=== PATIENT | female | born 1970 | race Caucasian/White ===

== ENCOUNTER 2016-08-15 06:16 | Emergency (ER) | payer OTHER ==
[2016-08-15] MEDS ORDERED: NS 1,000 ML IV ONE (07:22)
[2016-08-15] MEDS ORDERED: KETOROLAC 30 MG/1 ML SDV ONE (07:22)
[2016-08-15] MEDS ORDERED: KETOROLAC 30 MG/1 ML SDV IVP ONE (07:22)
[2016-08-15] MEDS ORDERED: HYDROmorphONE/DILAUDID 1 MG/ML SYR ONE (07:22)
[2016-08-15] MEDS ORDERED: HYDROmorphONE/DILAUDID 1 MG/ML SYR IVP ONE (07:22)
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
[2016-08-15 08:15] VITALS: BP 167/102; PULSE 58; RESP 16; TEMP 98.4; O2SAT 94
== END 2016-08-15 08:14 | disposition home or self-care (01) ==
DX: K13.79 Other lesions of oral mucosa (principal); K12.1 Other forms of stomatitis
CPT/HCPCS: 96374; J1170; J1885

== ENCOUNTER → 2016-08-20 | Outpatient (CLI) | payer OTHER | LOC: BMCIMAGING 14:49 | PROVIDERS: ATTEND Obstetrics & Gynecology | DX: Z12.31 Encounter for screening mammogram for malignant neoplasm of breast (principal) | CPT/HCPCS: G0202 ==

== ENCOUNTER 2017-02-18 17:32 | Emergency (ER) | payer OTHER ==
[2017-02-18 17:38] VITALS: BP 147/124; TEMP 98.6
--- NOTE | 2017-02-18 17:49 | CPEKG ---
Heart Rate: 53 RR Interval: 1132 P-R Interval: 148 QRSD Interval: 90 QT Interval: 480 QTC Interval: 451 P Keller: 33 QRS Keller: 57 T Wave Keller: 43 EKG Severity - BORDERLINE ECG - EKG Impression: SINUS RHYTHM EKG Impression: BORDERLINE R WAVE PROGRESSION, ANTERIOR LEADS Electronically Signed By: Janki Villa 18-Feb-2017 20:53:21
--- NOTE | 2017-02-18 18:01 | EDPHY ---
H & P Time Seen by Provider: 02/18/17 17:46 HPI/ROS: CHIEF COMPLAINT: Vomiting, chest pain HISTORY OF PRESENT ILLNESS: The patient is a 46 y/o female with a history of hypercholesterolemia, complaining of intermittent vomiting and chest pain. She vomited several times 3 to 4 days ago, but then this completely resolved. For the past two days she has been eating, drinking, and feeling normal. Today while cooking dinner she felt a sudden urge to vomit, barely making it to the sink. Shortly after vomiting, she began feeling a soreness and pressure (ranked 3/10) in the left side of her upper chest. The pain extends into her neck. She is mainly concerned about a heart attack, as her grandfather had a heart attack at an early age. No other family history of early heart disease. She denies abdominal pain, nausea, fever, or other associated symptoms. She has a history of panic attacks associated with vomiting, accompanied by feeling closed in and shakiness. She has three to four alcoholic drinks a day to cope with anxiety. She has had diarrhea for the past 6 months. REVIEW OF SYSTEMS: Constitutional: No fever, no chills Eyes: No visual changes ENT: No sore throat Respiratory: No cough, no shortness of breath Cardiac: Chest pain Gastrointestinal: no abdominal pain Genitourinary: no dysuria Musculoskeletal: No leg pain or swelling Skin: No rash Neurological: No headache, no numbness, no weakness Psychiatric: Depression and anxiety Past Medical/Surgical History: Anxiety, panic attacks, chronic diarrhea Social History: at bedside, four children, lives in [place] Smoking Status: Never smoked Physical Exam: General Appearance: Alert, appears anxious Eyes: Pupils equal and round, no conjunctival pallor ENT, Mouth: Mucous membranes moist Neck: Normal inspection Respiratory: Left upper chest wall tenderness, Lungs are clear to auscultation Cardiovascular: Regular rate and rhythm Gastrointestinal: Abdomen is soft and non-tender Neurological: A&O, nonfocal, normal gait Skin: Warm and dry, no rash Extremities: Nontender, no pedal edema Psychiatric: Anxious Constitutional: Initial Vital Signs Temperature (C) 37 C 02/18/17 17:37 Heart Rate 74 02/18/17 17:37 Respiratory Rate 20 02/18/17 17:37 Blood Pressure 147/124 H 02/18/17 17:37 O2 Sat (%) 99 02/18/17 17:37 O2 Delivery Mode Room Air Allergies/Adverse Reactions: No Known Allergies Allergy (Verified 02/18/17 17:36) Home Medications: Medication Instructions Recorded Crestor 09/30/14 Omeprazole 09/30/14 Sertraline HCl 09/30/14 Medical Decision Making - Diagnostics EKG Interpretation: EKG interpreted by me reveals borderline R wave progression anteriorly, rate 53 , no ST/T changes. Interpretation: border line R wave progression Imaging Results: Chest x-ray: NAD Imaging: I viewed and interpreted images myself ED Course/Re-evaluation: The patient is a 46 y/o female complaining of sudden onset vomiting over the past 3 to 4 days. She has associated soreness in her left upper chest. Her EKG shows borderline R wave progression anteriorly, similar to prior EKG. Plan for labs and chest X-ray. Given this presentation, I do not suspect acute coronary syndrome. She has no risk factors for pulmonary embolism and I do not suspect PE. The patient has a negative troponin and normal chest X-ray. I feel she is safe to return home. She is asymptomatic. She will restart Prilosec. She agrees to this course of action. Return precautions given. Differential Diagnosis: Differential diagnosis includes though not limited to acute coronary syndrome, pulmonary embolism, acute gastritis, anxiety, pneumomediastinum - Data Points Laboratory Results: Laboratory Results 02/18/17 18:40 02/18/17 18:40 Departure - Departure Disposition: Home, Routine, Self-Care Clinical Impression: Vomiting Qualifiers: Vomiting type: unspecified Vomiting Intractability: non-intractable Nausea presence: without nausea Qualified Code(s): R11.11 - Vomiting without nausea Chest pain Qualifiers: Chest pain type: intercostal pain Qualified Code(s): R07.82 - Intercostal pain Condition: Good Instructions: Chest Pain (ED), Acute Nausea and Vomiting (ED) Additional Instructions: 1. Resume taking your omeprazole daily. Take Zofran as directed as needed for nausea and vomiting for 2-3 days. 2. Follow-up with your primary care provider for unimproved symptoms in 2-3 days. 3. Return to the ED for uncontrollable vomiting, fever, weakness or numbness on one side of your body, or other worsening of condition. Referrals: Nancie Jorge MD [Medical Doctor] - As per Instructions Report Scribed for: Janki Villa Report Scribed by: Mitali Flores Date of Report: 02/18/17 Time of Report: 17:49 Physician Review and Approval Statement: 02/18/17 17:49 Portions of this note were transcribed by a medical review specialist. I personally performed a history, physical exam, medical decision making, and confirmed accuracy of information the transcribed note.
[2017-02-18 18:47] LABS: % IMMATURE GRANULYOCYTES 0.3 % (0.0-1.1); ABSOLUTE IMMATURE GRANULOCYTES 0.01 10^3/uL (0.00-0.10); ADD DIFF? NO; ADD MORPH? NO; ADD SCAN? NO; ATYPICAL LYMPHOCYTE FLAG 0 (0-99); FRAGMENT RBC FLAG 0 (0-99); HEMATOCRIT 36.6 % (38.0-47.0); HEMOGLOBIN 13.3 g/dL (12.6-16.3); LEFT SHIFT FLG 0 (0-99); LIPEMIA HEMOLYSIS FLAG 90 (0-99); MEAN CELL HEMOGLOBIN 34.5 pg (27.9-34.1); MEAN CELL HEMOGLOBIN CONCENTR. 36.3 g/dL (32.4-36.7); MEAN CELL VOLUME 95.1 fL (81.5-99.8); MEAN PLATELET VOLUME 10.1 fL (8.7-11.7); PLATELET CLUMPS FLAG 0 (0-99); PLATELET COUNT 123 10^3/uL (150-400); RED BLOOD CELL COUNT 3.85 10^6/uL (4.18-5.33); RED CELL DISTRIBUTION WIDTH 11.5 % (11.5-15.2)
[2017-02-18 18:56] LABS: ANION GAP 15 mEq/L (8-16); CALCIUM 9.4 mg/dL (8.5-10.4); CARBON DIOXIDE 20 mEq/l (22-31); CHLORIDE 98 mEq/L (97-110); CREATININE 0.7 mg/dL (0.6-1.0); GLOMERULAR FILTRATION RATE > 60; GLUCOSE 88 mg/dL (70-100); POTASSIUM 3.7 mEq/L (3.5-5.2); SODIUM 133 mEq/L (134-144)
[2017-02-18 19:08] LABS: TROPONIN I < 0.012 ng/mL (0.000-0.034)
[2017-02-18 20:18] VITALS: PULSE 60; RESP 18; O2SAT 96
== END 2017-02-18 20:10 | disposition home or self-care (01) ==
DX: R07.82 Intercostal pain (principal); R11.11 Vomiting without nausea

== ENCOUNTER 2017-08-13 19:08 | Emergency (ER) | payer OTHER ==
--- NOTE | 2017-08-13 19:38 | EDPHY ---
H & P Stated Complaint: some SI/depression, recent inj to coccyx 2 wks ago - pain not improving Source: Patient, Family () Exam Limitations: Clinical condition - Medical/Surgical History Hx Asthma: No Hx Chronic Respiratory Disease: No Hx Diabetes: No Hx Cardiac Disease: Yes Hx Renal Disease: No Hx Cirrhosis: No Hx Alcoholism: Yes Hx HIV/AIDS: No Hx Splenectomy or Spleen Trauma: No Other PMH: tubal ligation; ; hyperlipidemia, depression, etoh abuse, tonsillectomy - Social History Smoking Status: Never smoked Time Seen by Provider: 08/13/17 19:37 HPI/ROS: HPI: This is a 47-year-old female who presents with Chief Complaint: some SI/depression, recent injury to coccyx 2 wks ago - pain not improving Location:psych Quality: Major depression and suicidal thoughts Duration: Several weeks Signs and Symptoms: + insomnia, + excessive crying, + disorientation, + inability to function with daily activities, + suicidal thoughts, no homicidal ideation, no hallucinations Timing: Acute on chronic Severity: Moderate Context: Patient presents accompanied by her with a history of alcoholism, major depression with worsening depression over the last several weeks accompanied by suicidal thoughts, excessive crying, insomnia, disorientation, inability to function with daily activities. Patient reports that she wants to end her life. Her father has been sick with several surgeries and this has been a trigger to worsen her depression. Patient also fell approximately 2 weeks while she was in her home wearing socks on the hardwood floors. She reports that she had coccyx pain and associated bruising. She reports that the pain persists over the last 2 weeks. Denies any change in bowel or bladder problems. + bruising. Denies LOC/head injury/neck pain/ dizziness/nausea/vomiting/amnesia. Denies any recreational drug use. Patient denies drinking alcohol today. does not feel safe taking patient home as she is a danger to herself and is gravely disabled. Modifying Factors: None Comment: ROS: see HPI Constitutional: No fever, no chills, no weight loss Eyes: No blurred vision Respiratory: No shortness of breath, no cough Cardiovascular: No chest pain Gastrointestinal: No nausea, no vomiting no diarrhea Genitourinary: No dysuria Extremities: No myalgias Neurologic: No weakness, no numbness Skin: No rashes Hematologic: No bruising, no bleeding MEDICAL/SURGICAL/SOCIAL HISTORY: Medical/Surgical history: tubal ligation; ; hyperlipidemia, depression , etoh abuse, tonsillectomy Social history: . CONSTITUTIONAL: Tearful, flat affect middle-aged white female, at bedside, awake and alert, no obvious distress HEENT: Atraumatic and normocephalic, PERRL, EOMI. Nares patent; no rhinorrhea; no nasal mucosal edema. Tympanic membranes clear. Oropharynx clear, no exudate and moist pink mucosa. Airway patent. No lymphadenopathy. No meningismus. Cardiovascular: Normal S1/S2, regular rate, regular rhythm, without murmur rub or gallop. PULMONARY/CHEST: Symmetrical and nontender. Clear to auscultation bilaterally. Good air movement. No accessory muscle usage. ABDOMEN: Soft, nondistended, nontender, no rebound, no guarding, no peritoneal signs, no masses or organomegaly. No CVAT. PELVIC: no pain with rocking; bilateral hips flexion 125 degrees, extension 30 degrees, with no pain internal rotation and no pain external rotation. Patient has reproducible tenderness to palpation coccyx with associated ecchymosis, BACK: No midline tenderness, no paraspinous spasm, deep tendon reflexes 2/2, no pain with straight leg raise, No foot drop. Achilles reflexes are equal bilaterally. Able to walk on heels and toes without difficulty. EXTREMITIES: 2/2 pulses, strength 5/5, no deformities, no clubbing, no cyanosis or edema. NEUROLOGICAL: no focal neuro deficits. GCS 15. SKIN: Warm and dry, no erythema. no rash. Good capillary refill. PSYCH: Fair eye contact, no flight of ideas, disorganized thought process, poor insight and judgment, no auditory and visual command hallucinations, + suicidal ideation, no homicidal ideation, no paranoia (Shonda,Terra) Constitutional: Initial Vital Signs Temperature (C) 36.7 C 08/13/17 19:23 Heart Rate 77 08/13/17 19:23 Respiratory Rate 16 08/13/17 19:23 Blood Pressure 101/78 08/13/17 19:23 O2 Sat (%) 88 L 08/13/17 19:23 O2 Delivery Mode Room Air Allergies/Adverse Reactions: No Known Allergies Allergy (Verified 08/13/17 19:29) Home Medications: Medication Instructions Recorded Ranitidine HCl [Zantac] 150 mg PO DAILY 09/30/14 Rosuvastatin Calcium [Crestor 20mg 20 mg PO DAILY 09/30/14 (*)] Sertraline HCl [Zoloft 100mg (*)] 150 mg PO DAILY 09/30/14 Diazepam [Valium 5 MG (*)] 2.5 - 5 mg PO DAILY PRN 08/13/17 Acetaminophen [Tylenol 325mg (*)] 325 mg PO DAILY PRN 08/14/17 Hydroxyzine Pamoate 25 mg PO DAILY PRN 08/14/17 Ondansetron Odt [Zofran Odt 4 mg 4 mg PO Q4 PRN 08/14/17 (*)] traZODone [traZODONE 100MG (*)] 100 mg PO HS PRN 08/14/17 Medical Decision Making ED Course/Re-evaluation: 2000: Placed on M1 hold upon arrival. Patient is severely depressed with active suicidal thoughts. Labs and UDS ordered. Currently calm and cooperative. Coccyx x-ray ordered and shows no signs of fracture. No signs of neurovascular compromise/tenting of skin/compartment syndrome/extremities and joints examined above and below area of concern and are neurovascularly intact. Patient has no signs of alcohol withdrawal seizures/delirium. 2037: Urine drug screen is positive for marijuana and benzodiazepines. 2100: ETOH 382 0100: End of shift. Signed over to Dr. Killian pending patient becoming more sober and alcohol level is decreased. At which time, mental health will evaluate patient further and make recommendations. This patient was seen under the supervision of my secondary supervising physician. I evaluated care for this patient independently. Discussed this patient with Dr. Hernandez who did not see the patient. (Darby Merchant) 0643: Patient appears to be going through alcohol draw. She is getting p.o. Ativan. She is on see wall. She is drinking and tolerating fluids well. She did have a mental health evaluation and plan is for inpatient psychiatric hospitalization. She remains on M1 hold. (Fran Killian) Differential Diagnosis: Differential diagnosis includes but is not limited to functional depression, situational depression, schizoaffective disorder, bipolar disorder. (Darby Merchant) Other Provider: 10:20: Patient has been accepted to [facility]. I filled out EMTALA form. Stable over course of my shift. (Ye Vega) - Data Points Laboratory Results: Laboratory Results 08/13/17 20:05 08/13/17 20:05 Medications Given: Discontinued Medications Acetaminophen (Tylenol) 650 mg PO EDNOW ONE Stop: 08/13/17 21:37 Last Admin: 08/13/17 21:40 Dose: 650 mg Chlordiazepoxide HCl (Librium) 50 mg PO EDNOW ONE Stop: 08/14/17 09:36 Last Admin: 08/14/17 09:41 Dose: 50 mg Lorazepam (Ativan) 1 mg PO EDNOW ONE Stop: 08/13/17 23:54 Last Admin: 08/13/17 23:56 Dose: 1 mg Lorazepam (Ativan) 1 mg PO ONCE ONE Stop: 08/14/17 05:23 Last Admin: 08/14/17 05:24 Dose: 1 mg Ondansetron HCl (Zofran Odt) 4 mg PO EDNOW ONE Stop: 08/13/17 21:38 Last Admin: 08/13/17 21:40 Dose: 4 mg Departure - Departure Disposition: Other Psych, Not [facility] Clinical Impression: Severe major depression, Verbalizes suicidal thoughts Alcohol intoxication Qualifiers: Complication of substance-induced condition: uncomplicated Qualified Code(s): F10.920 - Alcohol use, unspecified with intoxication, uncomplicated Referrals: Rambo Arcos MD [Primary Care Provider] - As per Instructions
[2017-08-13 20:30] LABS: PLATELET COUNT 95 10^3/uL (150-400)
[2017-08-13] MEDS ORDERED: ACETAMINOPHEN 325 MG TAB PO ONE (21:36)
[2017-08-13] MEDS ORDERED: ONDANSETRON DISINTEGRATING 4 MG TAB PO ONE (21:37)
[2017-08-13] MEDS ORDERED: LORazepam 1 MG TAB PO ONE (23:53)
[2017-08-14] MEDS ORDERED: LORazepam 1 MG TAB PO ONE (05:22)
[2017-08-14] MEDS ORDERED: chlordiazePOXIDE 25 MG CAP PO ONE (09:35)
[2017-08-14] MEDS ORDERED: ONDANSETRON DISINTEGRATING 4 MG TAB ONE (10:30)
[2017-08-14] MEDS ORDERED: DIAZEPAM 5 MG TAB ONE (10:30)
[2017-08-14] MEDS ORDERED: DIAZEPAM 5 MG TAB PO ONE (11:04)
[2017-08-14 12:30] VITALS: BP 138/91
== END 2017-08-14 12:28 ==
PROC: GZ11ZZZ Psychological Tests, Personality and Behavioral (ICD-10-PCS; principal; 2017-08-13)
DX: R45.851 Suicidal ideations (principal); F32.2 Major depressive disorder, single episode, severe without psychotic features; F10.920 Alcohol use, unspecified with intoxication, uncomplicated
CPT/HCPCS: 80305; G0480

== ENCOUNTER → 2017-09-07 | Outpatient (CLI) | payer OTHER | LOC: BMCIMAGING 12:49 | PROVIDERS: ATTEND Obstetrics & Gynecology | DX: Z12.31 Encounter for screening mammogram for malignant neoplasm of breast (principal) ==

== ENCOUNTER 2018-04-01 12:57 | Emergency (ER) | payer MEDICAID, OTHER ==
--- NOTE | 2018-04-01 13:20 | EDPHY ---
HPI/HX/ROS/PE/MDM Narrative: CHIEF COMPLAINT: "I have a headache" HPI: This patient is a 47 year old female with history of hyperlipidemia, alcohol abuse, and depression. She presents complaining of headache ongoing for six days. She has tried ibuprofen without relief. She additionally notes she fell 2- 3 days ago, slipping on hardwood floors and striking the back of her head. She endorses possible loss of consciousness. She is unsure if her persistent headache is related to this. The pain is primarily frontal and occipital, bilaterally. She denies fever, nausea, or vomiting. No weakness in her extremities. She denies any other recent trauma. No recent cough, cold symptoms , GI illness, or other complaints. REVIEW OF SYSTEMS: A comprehensive 10 system review of systems is otherwise negative aside from elements mentioned in the history of present illness and medical decision making. PMH: Tubal ligation; ; hyperlipidemia, depression, EtOH abuse, tonsillectomy SOCIAL HISTORY: . Lives in [place]. History of alcohol abuse. PHYSICAL EXAM: General:Patient is alert, in no acute distress. She did have a blanket over her face when I entered the room. ENT:Eyes are normal to inspection. ENT inspection normal. Neck: Normal inspection. Full range of motion. Respiratory:No respiratory distress. Breath sounds normal bilaterally. Cardiovascular: Regular rate and rhythm. Strong peripheral pulses. Normal cap refill. Abdomen:The abdomen is nontender to palpation. There are no peritoneal signs. There are normal bowel sounds. Back: Normal to inspection. No tenderness to palpation. Skin: Normal color. No rash. Warm and dry. Extremities: Normal appearance. Full range of motion. Neuro: Oriented x3. Normal motor function. Normal sensory function. ED Course: 47 y/o female presents with six day history of headache, with a fall about three days ago. Exam is largely unremarkable. She is neurologically intact. Due to persistent symptoms and reported loss of consciousness, plan for CT head to rule out acute traumatic processes or other acute intracranial abnormalities. Plan to administer 12.5mg IV Reglan, 25mg IV Benadryl, 30mg IV Toradol, and 1L IV NS for symptom relief. 15:00 Patient is feeling "40%" better following medication administration, and requests some juice or water. We will provide this. CT results pending. 15:[address] Rajput, radiologist. CT head is negative for acute processes. 15:35 Reassessed patient. Discussed imaging results. She is states she is now feeling worse again. Plan to administer 1mg IV Dilaudid for symptom relief. 16:00 Alerted by tech that this patient would like to leave immediately without further workup or treatment and is about to leave the department. Appropriate paperwork and return precautions provided. 16:10 Patient had apparently not yet received her Dilaudid. She has now received this medication and is content to stay in the department. 16:54 Notified by nurse that patient is now leaving the department. 17:24 I had a lengthy discussion with the patient regarding followup and further evaluation. She states she is completely 100% headache free at this point. We discussed further testing including MRI or lumbar puncture. She declines both of these at this time and prefers to follow up in the outpatient setting. Referral to neurology provided for further evaluation. Plan to discharge home in good condition. Follow up and strict return precautions discussed. The patient understands to return for any recurrence of headache. She is comfortable with this plan. MDM: This patient presents with approximately one week of headache that was gradual in onset, and possibly related to fall which occurred several days ago. Given report of fall, headache and history of alcohol abuse, I ordered a CTH which was thankfully negative. The patient tells me that she gets headaches like this several times each year, which points away from SAH and seems consistent with migraine. The patient's behavior was somewhat odd during her stay - she repeatedly voiced that she was upset because she had never seen a doctor, never had her vitals taken, and never received any medications, despite the fact that all of these statements are untrue. The patient's is now at bedside. I explained to them both that I have evaluated her numerous times and listed the medications she had received. I offered them further testing, to possibly include LP, CTA, MRI, but stated that given her presentation, lack of neurologic findings, lack of laterality, and negative CTH that I felt the risk of SAH or vessel dissection to be quite low, and that I didn't think these tests were definitively indicated. They declined further testing in favor of discharge home and immediate return to the ED should headache recur. At this time, the patient states she is 100% headache free. - Data Points Imaging Results: Imaging Impressions Head CT 04/01/18 13:43 Impression: Negative noncontrast CT of the brain. Results called to Dr. Ye Vega at 3:10 PM at the time of the interpretation. Imaging: Discussed imaging studies w/ scalloper Radiologist Medications Given: Discontinued Medications Diphenhydramine HCl (Benadryl Injection) 25 mg IVP EDNOW ONE Stop: 04/01/18 13:44 Last Admin: 04/01/18 14:13 Dose: 25 mg Hydromorphone HCl (Dilaudid) 1 mg IVP EDNOW ONE Stop: 04/01/18 15:40 Last Admin: 04/01/18 16:08 Dose: 1 mg Sodium Chloride (Ns) 1,000 mls @ 0 mls/hr IV ONCE ONE; Wide Open PRN Reason: Protocol Stop: 04/01/18 13:44 Last Admin: 04/01/18 14:13 Dose: 1,000 mls Ketorolac Tromethamine (Toradol) 30 mg IVP EDNOW ONE Stop: 04/01/18 13:44 Last Admin: 04/01/18 14:14 Dose: 30 mg Promethazine HCl (Phenergan) 12.5 mg IVP ONCE ONE Stop: 04/01/18 13:45 Last Admin: 04/01/18 14:13 Dose: 12.5 mg General Time Seen by Provider: 04/01/18 13:08 Initial Vital Signs: Initial Vital Signs Temperature (C) 36.4 C 04/01/18 13:01 Heart Rate 70 04/01/18 13:01 Respiratory Rate 18 04/01/18 13:01 Blood Pressure 138/82 H 04/01/18 13:01 O2 Sat (%) 91 L 04/01/18 13:01 O2 Delivery Mode Room Air Allergies/Adverse Reactions: No Known Allergies Allergy (Verified 04/01/18 13:00) Home Medications: Medication Instructions Recorded Ranitidine HCl [Zantac] 150 mg PO DAILY 09/30/14 Rosuvastatin Calcium [Crestor 20mg 20 mg PO DAILY 09/30/14 (*)] Sertraline HCl [Zoloft 100mg (*)] 150 mg PO DAILY 09/30/14 Diazepam [Valium 5 MG (*)] 2.5 - 5 mg PO DAILY PRN 08/13/17 Acetaminophen [Tylenol 325mg (*)] 325 mg PO DAILY PRN 08/14/17 Hydroxyzine Pamoate 25 mg PO DAILY PRN 08/14/17 Ondansetron Odt [Zofran Odt 4 mg 4 mg PO Q4 PRN 08/14/17 (*)] traZODone [traZODONE 100MG (*)] 100 mg PO HS PRN 08/14/17 Departure - Departure Disposition: Home, Routine, Self-Care Clinical Impression: Headache Qualifiers: Headache type: unspecified Headache chronicity pattern: acute headache Intractability: not intractable Qualified Code(s): R51 - Headache Condition: Good Instructions: Acute Headache (ED) Additional Instructions: Follow-up with your primary care physician within 2-3 days. Follow up with neurology for further evaluation as we discussed. A referral to neurology has been provided. Return to the emergency department immediately for recurrence of headache, nausea, vomiting, numbness, weakness, neck pain, fever or other concerns. Use Tylenol and/or ibuprofen as directed. Adult Pain & Fever Control: We recommend Acetaminophen (Tylenol) and Ibuprofen (Motrin,Advil) for pain and fever control. When fever is high or pain severe, both drugs can be used at the same time, but at different intervals. Please note the time differences. Your dose is: Acetaminophen 650mg every 4 to 6 hours Ibuprofen 600mg every 6-8 hours with food Note: do not take Acetaminophen with Hydrocodone (Vicodin, Lortab) or Oxycodone (Percocet). These medications also contain Acetaminophen. No more than 3000mg of Acetaminophen should be taken in 24 hours (for an adult). Referrals: Mamta Ceballos MD [Medical Doctor] - As per Instructions Danny Baca MD [Medical Doctor] - As per Instructions Report Scribed for: Ye Vega Report Scribed by: Aditi Abreu Date of Report: 04/01/18 Time of Report: 13:20 Physician Review and Approval Statement: Portions of this note were transcribed by an ED scribe. I personally performed the history, physical exam, and medical decision making; and confirm the accuracy of the information in the transcribed note.
[2018-04-01] MEDS ORDERED: NS 1,000 ML IV ONE (13:43)
[2018-04-01] MEDS ORDERED: KETOROLAC 30 MG/1 ML SDV IVP ONE (13:43)
[2018-04-01] MEDS ORDERED: PROMETHAZINE HCL 25 MG/ML INJ IVP ONE (13:44)
[2018-04-01] MEDS ORDERED: HYDROmorphONE/DILAUDID 2 MG/ML INJ IVP ONE (15:39)
[2018-04-01 17:53] VITALS: BP 159/95
== END 2018-04-01 17:53 | disposition home or self-care (01) ==
DX: R51 Headache (principal)
CPT/HCPCS: 96374; J1170; J1200; J1885; J2550

== ENCOUNTER 2018-04-05 04:34 | Emergency (ER) | payer MEDICAID ==
[2018-04-05] MEDS ORDERED: DEXAMETHASONE 10 MG/ML VIAL IVP ONE (05:07)
[2018-04-05] MEDS ORDERED: KETAMINE 500 MG/10 ML VIAL IVP ONE (05:07)
[2018-04-05] MEDS ORDERED: NS 1,000 ML IV ONE (05:07)
[2018-04-05] MEDS ORDERED: KETOROLAC 15 MG/1 ML SDV IVP ONE (05:07)
[2018-04-05] MEDS ORDERED: DEXAMETHASONE 4 MG/ML VIAL ONE (05:20)
[2018-04-05 05:58] LABS: PLATELET COUNT 97 10^3/uL (150-400)
[2018-04-05] MEDS ORDERED: METOCLOPRAMIDE 10 MG/2 ML VIAL IVP ONE (06:29)
[2018-04-05] MEDS ORDERED: HALOPERIDOL LACT 5 MG/ML INJ IVP ONE (06:29)
[2018-04-05] MEDS ORDERED: LIDOCAINE 4% 5 ML AMP TP ONE (06:30)
[2018-04-05] MEDS ORDERED: LIDOCAINE HCL 4% TOPICAL SOLN 50ML ONE (06:47)
--- NOTE | 2018-04-05 07:06 | EDPHY ---
H & P Stated Complaint: CHO for 10 days Time Seen by Provider: 04/05/18 04:41 HPI/ROS: HPI The patient presents with headache which she says has been present for the last 10 days which is not improving. She says the headache is diffuse though mostly affects her temples bilaterally, is throbbing, constant, moderate in severity. She has been taking ibuprofen around the clock with minimal improvement in her symptoms. Her headache is associated with mostly nausea though occasionally vomiting. She has decreased sleep because of the headache. She says that when she closes her eyes she sees shaped in her visual field. She says she has intermittent double vision with this. She was in the emergency department on April 01 for the same headache. At that time she had a normal CT scan of her head. She exhibited some strange behavior while there. She did have a head injury, however this occurred after her headache started. Under headache did not change in nature afterwards. She has not had any fever.. REVIEW OF SYSTEMS 10 systems were reviewed and negative with the exception of the elements mentioned in the history of present illness. PMHx: Depression Soc Hx: Alcohol abuse, housed with her and 4 children, recently lost his job, she no longer has a primary care doctor PHYSICAL General Appearance: Alert, tearful and uncomfortable appearing Eyes: Pupils equal and round no pallor or injection ENT, Mouth: Mucous membranes moist Respiratory: There are no retractions, lungs are clear to auscultation Cardiovascular: Regular rate and rhythm Gastrointestinal: Abdomen is soft and non-tender, no masses, bowel sounds normal Neurological: Oriented x3, cranial nerves 2-12 intact, 5/5 strength in upper and lower extremities which is symmetric, normal finger to nose testing Skin: Warm and dry, ecchymoses to both arms Musculoskeletal: Neck is supple non tender Extremities: symmetrical, full range of motion Psychiatric: Patient is oriented X 3, there is no agitation Source: Patient Exam Limitations: No limitations - Personal History LMP (Females 10-55): Over 28 Days Ago Current Tetanus/Diphtheria Vaccine: No Current Tetanus Diphtheria and Acellular Pertussis (TDAP): No - Medical/Surgical History Hx Asthma: No Hx Chronic Respiratory Disease: No Hx Diabetes: No Hx Cardiac Disease: No Hx Renal Disease: No Hx Cirrhosis: No Hx Alcoholism: Yes Hx HIV/AIDS: No Hx Splenectomy or Spleen Trauma: No Other PMH: tubal ligation; ; hyperlipidemia, depression, etoh abuse, tonsillectomy - Social History Smoking Status: Never smoked Constitutional: Initial Vital Signs Temperature (C) 36.9 C 04/05/18 04:35 Heart Rate 81 04/05/18 04:35 Respiratory Rate 16 04/05/18 04:35 Blood Pressure 117/86 H 04/05/18 04:35 O2 Sat (%) 94 04/05/18 04:35 O2 Delivery Mode Room Air Allergies/Adverse Reactions: No Known Allergies Allergy (Verified 04/05/18 04:39) Home Medications: Medication Instructions Recorded Ranitidine HCl [Zantac] 150 mg PO DAILY 09/30/14 Rosuvastatin Calcium [Crestor 20mg 20 mg PO DAILY 09/30/14 (*)] Sertraline HCl [Zoloft 100mg (*)] 150 mg PO DAILY 09/30/14 Diazepam [Valium 5 MG (*)] 2.5 - 5 mg PO DAILY PRN 08/13/17 Acetaminophen [Tylenol 325mg (*)] 325 mg PO DAILY PRN 08/14/17 Hydroxyzine Pamoate 25 mg PO DAILY PRN 08/14/17 Ondansetron Odt [Zofran Odt 4 mg 4 mg PO Q4 PRN 08/14/17 (*)] traZODone [traZODONE 100MG (*)] 100 mg PO HS PRN 08/14/17 Medical Decision Making Differential Diagnosis: This is a 47-year-old female with history of depression, alcohol abuse, now with 10 days of headache which is by temporal, aching in nature, associated with nausea and vomiting. She also reports some abnormalities in her vision, seeing shapes when she closes her eyes and occasional double vision. However, her neurologic exam is normal and I cannot elicit any double vision. She was in the emergency department about 4 days ago with a normal CT scan of her head. She has been taking ibuprofen with ongoing headaches. In the emergency department, she was given IV fluids and a migraine cocktail including Toradol, ketamine, dexamethasone. Her symptoms did not improve. I reassessed her and gave her Haldol, Reglan, intranasal lidocaine. This allowed her to sleep. Labs were checked and the patient is quite intoxicated with blood alcohol level of 270. I plan to observe her here. I confronted her on her blood alcohol level in she was quite surprised. She denied drinking alcohol. I explained to her that alcohol certainly could contribute to worsening of her headache. A few minutes after talking to her about alcohol intoxication, she requested discharge from the emergency department from her nurse. She is able to walk with a steady gait currently. She will be discharged home. I suspect tension type headache or migraine headache. Doubt subarachnoid hemorrhage, meningitis given normal neurologic exam. - Data Points Laboratory Results: Laboratory Results 04/05/18 05:40 04/05/18 05:40 Medications Given: Discontinued Medications Dexamethasone (Decadron Injection) 10 mg IVP EDNOW ONE Stop: 04/05/18 05:08 Last Admin: 04/05/18 05:43 Dose: 10 mg Haloperidol Lactate (Haldol Injection) 2.5 mg IVP EDNOW ONE Stop: 04/05/18 06:30 Last Admin: 04/05/18 06:41 Dose: 2.5 mg Sodium Chloride (Ns) 1,000 mls @ 0 mls/hr IV EDNOW ONE; Wide Open PRN Reason: Protocol Stop: 04/05/18 05:08 Last Admin: 04/05/18 05:43 Dose: 1,000 mls Ketamine HCl (Ketamine) 13.6 mg 0.2 mg/kg (13.6 mg) IVP EDNOW ONE Stop: 04/05/18 05:08 Last Admin: 04/05/18 05:42 Dose: 13.6 mg Ketorolac Tromethamine (Toradol) 15 mg IVP EDNOW ONE Stop: 04/05/18 05:08 Last Admin: 04/05/18 05:42 Dose: 15 mg Lidocaine HCl (Lidocaine Hcl 4%) 100 mg TP EDNOW ONE Stop: 04/05/18 06:31 Last Admin: 04/05/18 06:49 Dose: Not Given Metoclopramide HCl (Reglan Injection) 10 mg IVP EDNOW ONE Stop: 04/05/18 06:30 Last Admin: 04/05/18 06:40 Dose: 10 mg Departure - Departure Disposition: Home, Routine, Self-Care Clinical Impression: Headache, Alcohol intoxication Condition: Good Instructions: Migraine Headache (ED) Additional Instructions: I recommend that you follow [facility] with [facility] or the neurologist I have listed below. Please avoid drinking alcohol as this may be making her headache worse. Return to the ER if worse in any way. Referrals: [facility],. [Clinic] - As per Instructions Mele Schwab DO [Medical Doctor] - As per Instructions
[2018-04-05 07:09] VITALS: BP 118/89
== END 2018-04-05 07:42 | disposition home or self-care (01) ==
DX: R51 Headache (principal); E86.9 Volume depletion, unspecified; F10.129 Alcohol abuse with intoxication, unspecified; F32.9 Major depressive disorder, single episode, unspecified; Y90.8 Blood alcohol level of 240 mg/100 ml or more
CPT/HCPCS: 96374; G0480; J1100; J1630; J1885; J2765

== ENCOUNTER 2018-07-15 16:38 | Emergency (ER) | payer MEDICAID | END 2018-07-15 18:16 | disposition home or self-care (01) | DX: S93.401A Sprain of unspecified ligament of right ankle, initial encounter (principal); W17.3XXA Fall into empty swimming pool, initial encounter; E78.5 Hyperlipidemia, unspecified; F32.9 Major depressive disorder, single episode, unspecified ==

== ENCOUNTER → 2018-07-30 | Outpatient (CLI) | payer MEDICAID | LOC: FIMAGING 09:57 | PROVIDERS: ATTEND Orthopaedic Surgery | DX: R22.41 Localized swelling, mass and lump, right lower limb (principal) ==